=== PATIENT | male | born 1960 | race Caucasian/White ===

== ENCOUNTER 2019-12-13 10:32 | Inpatient (IN) | payer OTHER, SELFPAY ==
[2019-12-13] VITALS (8 sets, daily range): BP systolic 130–168; BP diastolic 68–81; PULSE 66–112; RESP 14–20; TEMP 36.3–37.1; O2SAT 97–100; BMI 27.2
--- NOTE | ~2019-12-13 | CT_ITS ---
EXAMINATION: CT brain wo con EXAM DATE: 12/13/2019 11:20 INDICATION: Temporary change in awareness. Speech impairment. TECHNIQUE: Spiral CT of the head was performed without contrast. Axial, coronal and sagittal images were reviewed. The dose-length product (DLP) for this examination was 605.33 mGy-cm. The exposure w as tailored according to patient size, and iterative reconstruction (ASIR) was used as additional dos e reduction technique. Comparison is made to prior examination from 09/17/2004. FINDINGS: There is no acute intraparenchymal hemorrhage. No evidence of intraparenchymal brain mass lesion. No evidence of acute infarction. Please note that initial head CT has limited sensitivity f or small or acute infarctions. There is punctate old left basal ganglia lacunar infarction. There i s mild periventricular and subcortical hypodensity, nonspecific but probably related to small vessel ischemic disease. There is intracranial carotid arteriosclerosis. There are no extra-axial collec tions. There is no mass effect or midline shift. The orbits are unremarkable. Soft tissue is unrem arkable. The visualized sinuses and mastoid air cells are well aerated. There is sclerotic focus i n the left frontal bone measuring 1.7 cm in diameter, was 1.4 cm in 2004. This is a benign finding, p ossibly Paget's disease. IMPRESSION: 1. Punctate old left basal ganglia lacunar infarction. 2. Mild microangiopathy. 3. Left frontal sclerotic region, calvarial possible Paget's. Reviewed, dictated and finalized at location B. OS EXECUTIVE PRODUCER
--- NOTE | ~2019-12-13 | MR_ITS ---
EXAMINATION: MR brain/brain stem wo con DATE: 12/14/2019 09:16 INDICATION: Expressive aphasia. TECHNIQUE: Magnetic resonance imaging (MRI) of the brain and brainstem was performed without intraven ous contrast. Sequences included sagittal and axial T1-weighted FSE, axial diffusion-weighted FS EPI, axial T2*-weighted GRE, axial T2-weighted FLAIR Propeller, and axial T2-weighted Propeller. Apparent diffusion coefficient (ADC) maps were created. COMPARISON: Head CT 12/13/2019 FINDINGS: There are patchy acute infarcts in posterior left frontal lobe. There is no intracranial he morrhage or abnormal mass lesion. There are scattered areas of nonspecific increased T2-weighted sign al intensity in the cerebral white matter. There is an old lacunar infarct in the left basal ganglia. The ventricles are normal in size. There are likely changes of ocular lens replacement surgeries. Th ere is mucosal thickening in the paranasal sinuses. The mastoid air cells are normal. IMPRESSION: 1. Acute infarcts in posterior left frontal lobe. 2. Old lacunar infarct in the left basal ganglia. 3. Mild nonspecific cerebral white matter disease, which likely represents chronic small vessel ische florentino disease. Reviewed, dictated and finalized at location A. RIALS RESEARCH ENGINEER IMPRESSION: 1. Acute infarcts in posterior left frontal lobe. 2. Old lacunar infarct in the left basal ganglia. 3. Mild nonspecific cerebral white matter disease, which likely represents street engineer ayde small vessel ischemic disease.
--- NOTE | ~2019-12-13 | XR_ITS ---
EXAMINATION: XR chest 1V EXAM DATE: 12/13/2019 11:26 INDICATION: Transient speech impairment, now resolved. TECHNIQUE: Portable AP frontal chest x-ray was obtained. Comparison is made to prior examination from 04/23/2018. FINDINGS: Prominent aortic outflow contour, as previously evaluated on chest CT is being mildly dilat ed. The lungs are clear. There are no pleural effusions. The cardiomediastinal silhouette is within normal limits. There is no pneumothorax suspected. The bones and soft tissues are unremarkable. IMPRESSION: No acute cardiopulmonary findings. Reviewed, dictated and finalized at location B. CTOR OF ACQUISITIONS
--- NOTE | ~2019-12-13 | US_ITS ---
EXAMINATION: US carotid duplex BI DATE: 12/14/2019 09:31 INDICATION: Transient ischemic attack. TECHNIQUE: Grayscale, color Doppler, and pulsed Doppler images of the cervical carotid arteries were obtained. The degree of vessel stenosis is placed in one of the following categories: normal, <50%, 5 0-69%, >=70% but less than near-occlusion, near-occlusion, or total occlusion. Note that percent sten osis relative to normal distal artery lumen diameter is indirectly measured from velocity measurement s as described by Endy, et al. Radiology 2003; [id number]. COMPARISON: None. FINDINGS: RIGHT: The right common carotid artery (CCA) peak systolic velocity (PSV) is 96 cm/s. The right internal car otid artery (ICA) PSV is 84 cm/s. The right ICA end-diastolic velocity (EDV) is 30 cm/s. The right IC A/CCA PSV ratio is 0.9. Grayscale and color Doppler images yield an estimate of <50% diameter reducti on from plaque in the ICA. There is antegrade flow in the right vertebral artery. LEFT: The left CCA PSV is 79 cm/s. The left ICA PSV is 82 cm/s. The left ICA EDV is 25 cm/s. The left ICA/C CA PSV ratio is 1.0. Grayscale and color Doppler images yield an estimate of <50% diameter reduction from plaque in the ICA. There is antegrade flow in the left vertebral artery. IMPRESSION: 1. <50% stenosis in the right internal carotid artery. 2. <50% stenosis in the left internal carotid artery. Reviewed, dictated and finalized at location A. CH CLEANER
--- NOTE | 2019-12-13 11:07 | ECG_ITS ---
Measurements Intervals [place] Rate: 76 P: 24 NH: 159 QRS: -18 QRSD: 106 T: 71 QT: 357 QTc: 404 Interpretive Statements SINUS RHYTHM POSSIBLE LEFT VENTRICULAR HYPERTROPHY CANNOT RULE OUT SEPTAL INFARCT, AGE INDETERMINATE BORDERLINE ST ABNORMALITY- LATERAL LEADS BASELINE ARTIFACT- I, III, AVL, V1-V2 ABNORMAL ECG Electronically Signed On 12-13-2019 11:16:19 NUCLEAR EQUIPMENT OPERATOR by Hernesto Garrett D.O.
--- NOTE | 2019-12-13 11:15 | PC.NURSE ---
unable to draw labs due to pt taken to ct and xy
[2019-12-13 11:37] LABS: Basophils Absolute Auto 0.1 K/mm3 (0.0-0.1); Basophils Percent Auto 0.9 % (0.2-1.2); Eosinophils Absolute Auto 0.3 K/mm3 (0-0.3); Eosinophils Percent Auto 2.8 % (0-4.4); Hematocrit 33.8 % (42.0-52.0); Hemoglobin 11.5 g/dL (14.0-18.0); Immature Granulocyte Absolute 0.02 K/mm3 (0.00-0.031); Immature Granulocyte Percent A 0.2 % (0-0.5); Lymphocytes Absolute Auto 0.93 K/mm3 (0.9-3.2); Lymphocytes Percent Auto 10.4 % (18.3-44.2); Mean Corpuscular Hemoglobin 30.8 pg (26-34); Mean Corpuscular Volume 90.6 fl (80-100); Mean Platelet Volume 9.3 fl (7.4-10.4); Monocytes Absolute Auto 0.6 K/mm3 (0.1-0.6); Monocytes Percent Auto 6.1 % (2.6-8.5); Neutrophils Absolute Auto 7.1 K/mm3 (1.3-6.7); Neutrophils Percent Auto 79.6 % (45.5-73.1); Platelet Count Result 314 k/mm3 (150-375); Red Blood Count 3.73 M/mm3 (4.6-6.20); Red Cell Distribution Width 12.4 % (11.5-14.5)
--- NOTE | 2019-12-13 11:37 | ED.NEUROSD ---
HPI - Neuro Symptoms/Deficit General Chief Complaint: Neuro Symptoms/Deficit Stated Complaint: TROUBLE SPEAKING Time Seen by Provider: 12/13/19 11:18 Source: patient and RN notes reviewed Mode of arrival: ambulatory Limitations: no limitations History of Present Illness HPI Narrative: Pt is a 59 y/o male who presents to the ED with c/o difficulty speaking starting yesterday morning. He notes that he woke up with trouble articulating words. Pt states that his symptoms resolved after roughly 3 hours. He notes that he woke up with the same symptoms again today. Pt states that his speech difficulty is nearly resolved while in the ED bed. He denies any weakness, troubled gait, fever, or chills. Pt notes that he is not currently taking any anticoagulants. Onset (ago): day(s) (1) Location: speech On Anticoagulants: No Associated symptoms: denies other symptoms Related Data Home Medications Medication Instructions Recorded Confirmed hydrochlorothiazide 25 mg tablet 25 mg PO DAILY 09/29/19 12/13/19 losartan 100 mg tablet 100 mg PO DAILY 09/29/19 12/13/19 cholecalciferol (vitamin D3) 125 5,000 unit PO DAILY 10/03/19 12/13/19 mcg (5,000 unit) capsule hydralazine 50 mg tablet 50 mg PO BID tablet 10/03/19 12/13/19 spironolactone 25 mg tablet 25 mg PO DAILY 10/03/19 12/13/19 diltiazem HCl 360 mg PO DAILY 11/01/19 12/13/19 Allergies Allergy/AdvReac Type Severity Reaction Status Date / Time lisinopril Allergy Severe Swelling Verified 12/13/19 11:09 of Lip/Tongue/Throat venom-wasp Allergy Intermediate rash Verified 12/13/19 11:09 PHYLLIS Inhibitors Allergy Mild Unknown Verified 12/13/19 11:09 Review of Systems Review of Systems: All systems reviewed & are unremarkable except as noted in HPI and below Constitutional: Constitutional: Denies chills and Denies fever(s) Respiratory: Respiratory: Denies cough and Denies dyspnea Gastrointestinal: Gastrointestinal: Denies nausea Genitourinary: Genitourinary: Denies no additional male genitourinary complaints Neurologic: Reports Abnormal speech present, Denies abnormal gait, Denies dizziness, Denies syncope, Denies headache(s) and Denies focal weakness [facility] Family History Family History Father Patient's father is Cancer Pancreatic Hypertension Mother Dementia Congestive heart failure Hypertension Sibling Hypertension Social History Social History Social History: Patient is and [facility] with [facility]. Shraddha his is the power of employment law attorney for healthcare. He has 1 daughter. 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 He desires to be a full code. He is a former smoker who quit about 15-20 years ago. Socially drinks. Years smoked: 20 Smoking status: Former smoker Second hand tobacco smoke exposure: No Smoking end date: 11/14/07 Alcohol intake: current Drinks per week: 24 Substance use: current Substance use type: marijuana Last use: 12/10/2019 Gender identity (if verbalized by the patient): Male Spiritual care concerns: No Agree to blood products: Yes Comments PCP is Dr. Fairchild. Exam Const: General: healthy appearing, no acute distress and well developed Nutritional Appearance: well nourished Orientation/consciousness: patient oriented x3 (alert) and Other orientation findings (Alert) Limitations: no limitations HENMT: Head: normocephalic and atraumatic Eyes: General: appearance normal, both eyes and all related structures Neck: Neck: full ROM, no lymphadenopathy and supple Thyroid: thyroid normal Resp: Effort & Inspection: normal respiratory effort Auscultation: clear to auscultation bilaterally, no rales, no rhonchi, no wheezes and other (breath sounds equal) Cardio: Rate: regular rate Rhythm: regular rhythm Heart sounds: Murmur heart sound present (loud
[2019-12-13 11:49] LABS: Blood Urea Nitrogen 54 mg/dL (9-20); Calcium 9.5 mg/dL (8.4-10.2); Carbon Dioxide 16 mmol/L (22-30); Chloride 105 mmol/L (98-107); Estimated CRCL calculation 28 ml/min; Estimated Glomerular Filt Rate 24; Glucose 118 mg/dL (75-110); Potassium 4.7 mmol/L (3.4-5.0); Sodium 134 mmol/L (137-145)
[2019-12-13 12:00] LABS: Troponin I 0.029 ng/mL (0.000-0.034)
[2019-12-13] MEDS: LACTATED RINGERS 1,000 ML 60 ML IV CONT (12:34)
[2019-12-13] MEDS: ASPIRIN 81 MG CHEWABLE TABLET (12:34)
--- NOTE | 2019-12-13 13:42 | ADMGEN ---
This patient, Mahin Duran, was admitted to [facility] Surg Room 315-01. Patient/family oriented to hospital policies and general routines including ID bracelet, bed and alarms, visiting hours, pain management, procedures, bathroom and other care routines, personal items, smoking policy, room service/diet, and visiting hours. Valuables list has been completed. Information on how to activate the Rapid Response Team has been discussed. Patient/Family are encouraged to report perceived risks to care and to ask questions if they do not understand what they are told or what they should do.
--- NOTE | 2019-12-13 17:29 | PM.IMHP ---
H&P: HPI History of Present Illness Chief complaint: TIA Narrative: Mahin Duran is a 59 year old male who stated for the last 2 days he has been getting up in the morning and having difficulty speaking. The patient stated yesterday he his speech got better throughout the day but when he woke up this morning he was still having difficulty talking. He stated that he got dressing went to work and is his boss sent him home. He had no focal weakness. The patient does not recall ever having a CVA in the past. He does not take an aspirin daily. He did not take an aspirin today or yesterday after the symptoms started. The symptoms resolve on their own. He denies having any difficulty swallowing. A speech evaluation was placed. Patient stated that he got somewhat choked up when he was using a straw and it was suggested that he not use a straw while he is admitted here. Patient stated his symptoms resolved after about 3 hours each day. He stated he has a murmur and that his out patient therapist is monitoring his heart valve closely. Last echo was October of 2019. Which shows some mild to moderate aortic stenosis. Patient denies any chest pain or shortness of breath. Patient had a CT of the brain today which was read as old left basal gangliar lacunar infarction. Mild micro angiopathy. Left frontal sclerotic region, calvarial possible Paget. The patient has not had any headache or any bone pain. He has never been diagnosed with Paget's disease nor has anybody in his family. Patient was given an aspirin in the emergency room and neurology has been consulted. Date of service 12/13/2019 Review of Systems Review of Systems: All systems reviewed & are unremarkable except as noted in HPI and below Constitutional: Constitutional: Reports as per HPI and Reports no additional constitutional complaints Eyes: Eyes: Reports as per HPI and Reports no additional eye complaints ENT: Reports system reviewed and no additional complaints, except as documented and Reports Normal hearing present Cardiovascular: Cardiovascular: Reports as per HPI and Reports no additional cardiovascular complaints Comments: History of aortic stenosis Respiratory: Respiratory: Reports no additional respiratory complaints and Reports no additional respiratory complaints Gastrointestinal: Gastrointestinal: Reports as per HPI and Reports no additional gastrointestinal complaints Musculoskeletal: Musculoskeletal: Reports no additional musculoskeletal complaints Integumentary/Breasts: Skin/Breast: Reports system reviewed and no additional complaints, except as docu and Reports as per HPI Neurologic: Reports system reviewed and no additional complaints, except as documented, Reports as per HPI and Reports Normal hearing present Comments: Temporary expressive aphasia Psychiatric: Psychiatric: Reports no additional psychiatric complaints and Reports as per HPI Endocrine: Endocrine: Reports no additional endocrine complaints Hematologic/Lymphatic: Hematologic/Lymphatic: Reports no additional hematologic/lymphatic complaints Allergic/Immunologic: Allergic/Immunologic: Reports no additional allergic/immunologic complaints PMFSH Past Medical History Medical History (Updated 12/13/19 @ 17:54 by Salena Randhawa NP) Anemia Anxiety Cataracts, bilateral Chronic renal disease crf stage 3 Colon cancer screening CVA (cerebral vascular accident) Today old left basal ganglia lacunar infarction. Dysfunction, bladder Straight caths TID Hyperlipidemia Hypertension UTI (urinary tract infection) Surgical History Surgical History (Updated 12/13/19 @ 17:45 by Salena Randhawa NP) History of transurethral resection of prostate Hx of cataract surgery Bilateral Family History Family History Father Patient's father is Cancer Pancreatic Hypertension Mother Dementia Congestive heart failure H
[2019-12-13] MEDS: hydrALAZINE HCL 50 MG TABLET PO (18:49)
[2019-12-14] VITALS: PULSE 72
[2019-12-14 04:00] VITALS: PULSE 66
[2019-12-14 06:00] VITALS: BP 143/75; PULSE 65; RESP 18; TEMP 36.7; O2SAT 99
[2019-12-14 06:08] LABS: Basophils Absolute Auto 0.1 K/mm3 (0.0-0.1); Basophils Percent Auto 0.8 % (0.2-1.2); Eosinophils Absolute Auto 0.6 K/mm3 (0-0.3); Eosinophils Percent Auto 7.6 % (0-4.4); Hematocrit 35.4 % (42.0-52.0); Hemoglobin 12.2 g/dL (14.0-18.0); Immature Granulocyte Absolute 0.02 K/mm3 (0.00-0.031); Immature Granulocyte Percent A 0.3 % (0-0.5); Lymphocytes Absolute Auto 1.17 K/mm3 (0.9-3.2); Lymphocytes Percent Auto 15.4 % (18.3-44.2); Mean Corpuscular HGB Conc 34.5 g/dl (32-36); Mean Corpuscular Volume 90.1 fl (80-100); Mean Platelet Volume 9.7 fl (7.4-10.4); Monocytes Absolute Auto 0.7 K/mm3 (0.1-0.6); Monocytes Percent Auto 9.3 % (2.6-8.5); Neutrophils Absolute Auto 5.1 K/mm3 (1.3-6.7); Neutrophils Percent Auto 66.6 % (45.5-73.1); Platelet Count Result 315 k/mm3 (150-375); Red Blood Count 3.93 M/mm3 (4.6-6.20); Red Cell Distribution Width 12.1 % (11.5-14.5); White Blood Count 7.6 K/mm3 (4.5-10.0)
[2019-12-14 06:12] LABS: Alanine Aminotransferase 14 U/L (4-50); Albumin Level 4.4 g/dL (3.5-5.1); Alkaline Phosphatase 80 U/L (38-126); Aspartate Amino Transferase 22 U/L (17-59); Bilirubin,Total 0.8 mg/dL (0.2-1.3); Blood Urea Nitrogen 48 mg/dL (9-20); Calcium 9.6 mg/dL (8.4-10.2); Carbon Dioxide 16 mmol/L (22-30); Chloride 104 mmol/L (98-107); Estimated CRCL calculation 31 ml/min; Estimated Glomerular Filt Rate 28; Glucose 105 mg/dL (75-110); Magnesium 1.5 mg/dL (1.6-2.3); Potassium 4.3 mmol/L (3.4-5.0); Sodium 133 mmol/L (137-145)
[2019-12-14 08:00] VITALS: PULSE 92
[2019-12-14 08:51] LABS: Free T4 Free Thyroxine Reflex 1.09 ng/dL (0.78-2.19)
[2019-12-14 09:40] LABS: Total Triiodothyronine (T3) 0.92 NG/ML (0.97-1.69)
[2019-12-14] MEDS: MAGNESIUM SULF 1 GM/D5W 100 ML 1 GM/100 ML BAG IVPB (09:43)
[2019-12-14] MEDS: SPIRONOLACTONE 25 MG TABLET PO (09:44)
[2019-12-14] MEDS: LOSARTAN POTASSIUM 100 MG TABLET PO (09:44)
[2019-12-14] MEDS: hydrALAZINE HCL 50 MG TABLET PO (09:44)
[2019-12-14] MEDS: CHOLECALCIFEROL 1,000 UNIT TABLET 5000 UNITS PO (09:44)
[2019-12-14] MEDS: hydroCHLOROthiazide 25 MG TABLET PO (09:44)
[2019-12-14] MEDS: ASPIRIN 81 MG CHEWABLE TABLET PO (10:15)
--- NOTE | 2019-12-14 11:06 | PM.IMPN ---
Progress Note: A&P Assessment and Plan (1) CVA (cerebral vascular accident): Code(s): I63.9 - Cerebral infarction, unspecified Status: Acute Assessment and Plan: Patient is doing okay today; he reports his symptoms have improved, if not resolved today. MRI of brain today showed acute posterior left frontal lobe infarcts. Notified Dr. Berg who recommended CTA of brain and carotids, however, patient has CKD and unable to perform imaging due to GFR. Old lacunar infarction noted. Aspirin started in ER. He had JORGE in 10/2019 and was told he had some narrowing of his aortic valve; no Echo was ordered during this stay. Carotid Doppler <50% stenosis b/l. Dr. Berg consulted and appreciate input Speech therapy has been consulted and appreciate input. He has apparently been instructed not to drink from stray Continue aspirin therapy for now Will await further recommendations from Neurology Monitor (2) Anemia: Code(s): D64.9 - Anemia, unspecified Status: Chronic Assessment and Plan: Likely due to chronic renal failure. Hemoglobin 12.2 which is above his baseline. No evidence of active bleeding Should he stay another night, trend labs tomorrow (3) Chronic renal disease: Code(s): N18.9 - Chronic kidney disease, unspecified Status: Acute Assessment and Plan: Patient straight caths himself 3 times a day. Patient is at his baseline Cr with 2.4 and GFR is 28 today. Follows with a wastewater technician outpatient. Patient stated that his creatinine and GFR been pretty stable. Continue straight cath as needed/TID Monitor BMP tomorrow should he stay (4) Hypertension: Code(s): I10 - Essential (primary) hypertension Status: Chronic Assessment and Plan: BP is 140s sys today; elevated but relatively stable. Continue with his home dose of spironolactone, losartan, hydrochlorothiazide, hydralazine, and diltiazem Monitor (5) Dysfunction, bladder: Code(s): N31.9 - Neuromuscular dysfunction of bladder, unspecified Status: Chronic Assessment and Plan: Patient straight cath 3 times a day. Continue straight cath Subjective Date/time seen: 12/14/19 11:06 Interval history: Patient is s 59 yo M with hyperlipidemia, hypertension, chronic renal disease, and bladder dysfunction (self catheterizes TID) who is here for stroke work up after having symptoms of expressive aphasia earlier in the week. Today, patient states that his symptoms have nearly resolved. He also denies ever having any other associated symptoms like facial droop, slurred speech, arm/leg weakness today and in the days prior to admission. He otherwise has no complaints. We discussed in lenght of the MRI results he had this morning and did not have any questions for me. Denies f/c/ns, headaches, dizziness, lightheadedness, changes in v/h, cp/palpitations, sob/cough, n/v/d/c, abd pain, dysphagia, melena, brbpr, dysuria, hematuria, cloudy urine, calf pain/swelling. Review of Systems Review of Systems: All systems reviewed & are unremarkable except as noted in HPI and below Exam Narrative: Exam Narrative: Patient sitting upright in bed at time of visit. No acute distress Const: General: healthy appearing, comfortable, no acute distress, well developed and alert Orientation/consciousness: patient oriented x3 HENMT: Head: normocephalic and atraumatic Ears: external ears normal General nose exam: Normal nares present Face and sinus: face symmetric Mouth: Yes lip normal and Yes moist mucous membranes Teeth and gingiva: fair dentition Throat: posterior oropharynx normal and uvula midline Eyes: General: appearance normal, both eyes and all related structures Sclera: sclerae normal Pupils: Equal, round and reac
[2019-12-14 12:00] VITALS: PULSE 90
--- NOTE | 2019-12-14 15:46 | PM.DS ---
DS: Diagnosis Admitting Diagnosis Admitting Diagnosis: Aphasia Discharge Diagnosis (1) CVA (cerebral vascular accident): Code(s): I63.9 - Cerebral infarction, unspecified Status: Acute Assessment and Plan: Patient is doing okay today; he reports his symptoms have improved, if not resolved today. MRI of brain today showed acute posterior left frontal lobe infarcts. Notified Dr. Berg who recommended CTA of brain and carotids, however, patient has CKD and unable to perform imaging due to GFR. Old lacunar infarction noted. Aspirin started in ER. He had JORGE in 10/2019 and was told he had mild-moderate stenosis of his aortic valve; no Echo was ordered during this stay. Carotid Doppler <50% stenosis b/l. Dr. Berg consulted and appreciate input. He has okayed patient for discharge from his standpoint. Recommended aspirin and atorvastatin 20 mg daily upon discharge. Follow up with him in 2 months Speech therapy has been consulted and appreciate input. He has apparently been instructed not to drink from straw (2) Anemia: Code(s): D64.9 - Anemia, unspecified Status: Chronic Assessment and Plan: Likely due to chronic renal failure. Hemoglobin 12.2 which is above his baseline. No evidence of active bleeding Follow up with PCP (3) Chronic renal disease: Code(s): N18.9 - Chronic kidney disease, unspecified Status: Acute Assessment and Plan: Patient straight caths himself 3 times a day. Patient is at his baseline Cr with 2.4 and GFR is 28 today. Follows with a support service tech outpatient. Patient stated that his creatinine and GFR been pretty stable. Continue straight cath TID as outpatient Follow up with his support service tech as instructed (4) Hypertension: Code(s): I10 - Essential (primary) hypertension Status: Chronic Assessment and Plan: BP is 140s sys today; elevated but relatively stable. Continue with his home dose of spironolactone, losartan, hydrochlorothiazide, hydralazine, and diltiazem (5) Dysfunction, bladder: Code(s): N31.9 - Neuromuscular dysfunction of bladder, unspecified Status: Chronic Assessment and Plan: Patient straight cath 3 times a day. Continue straight cath as outpatient DS: Summary Hospital Course Reason for hospitalization: Left hemispheric CVA Hospital Course: Patient is a 59 yo M with history of CKD, bladder dysfunction, HTN, and HLD who presented to the ER on 12/13 with complaints of difficulty speaking for the 2 days prior to presentation. His speech gets better throughout the day and then woke up the morning of presentation having difficulty speaking, again, and his boss sent him home from work with instructions to proceed to the ER to be evaluated. Please see H&P for further details. Presenting VS: BP 158/72, HR 89, RR 18, temp 98.1, sat 97% RA Presenting Pertinent labs: H&H 11.5/33.8, BUN 54, Cr 2.70, eGFR 24. CBC, coag, BMP, troponin, TSH otherwise unremarkable. Micro: none Imagin/[address] IMPRESSION: 1. Punctate old left basal ganglia lacunar infarction. 2. Mild microangiopathy. 3. Left frontal sclerotic region, calvarial possible Paget's. 12/13 CXR IMPRESSION: No acute cardiopulmonary findings. 12/14 MRI brain IMPRESSION: 1. Acute infarcts in posterior left frontal lobe. 2. Old lacunar infarct in the left basal ganglia. 3. Mild nonspecific cerebral white matter disease, which likely represents chronic small vessel ischemic disease. 12/14 Carotid Doppler IMPRESSION: 1. <50% stenosis in the right internal carotid artery. 2. <50% stenosis in the left internal carotid artery. ECG: Interpretive Statements SINUS RHYTHM POSSIBLE LEFT VENTRICULAR HYPERTROPHY CANNOT RULE OUT SEPTAL INFARCT, AGE INDETERMINATE BORDER
--- NOTE | 2019-12-14 16:23 | PC.NURSE ---
pt to MRI and US at 0845 return at 0940
--- NOTE | 2019-12-17 06:16 | CONS_ITS ---
DATE OF CONSULTATION: HISTORY OF PRESENT ILLNESS: This 59 years old right-handed male has been admitted to [facility] through the emergency room for the complaint of difficulties in speech over the last 48 hours. Reportedly, he got dressed to go to work, but his boss sent him home. He was not noted to have any focal weakness. He has never had a TIA or stroke in the past. Symptomatology resolved by itself. He had no associated difficulties in swallowing, difficulties in vision, but he did get somewhat choked up when he was using a straw. Symptomatology lasted only for 3 hours. He is known to have a cardiac murmur for which he is being monitored by the reading teacher. Last echo was in October 2019, which documented [id number] aortic stenosis. Initial CT scan of the brain in the emergency room documented left basal ganglia lacunar infarct with mild microangiopathy. PAST MEDICAL HISTORY: The patient has been diagnosed in the past to have anemia, anxiety, bladder dysfunction, hyperlipidemia, and hypertension. PAST SURGICAL HISTORY: He has undergone TUR and bilateral cataract extraction. SOCIAL HISTORY: He is a current alcohol intaker, drinks per week 24 and a former smoker. He has smoked 20. MEDICATIONS: At the time of admission, he was taking hydrochlorothiazide 25 mg daily, losartan 100 mg daily, cholecalciferol 5000 units daily, hydralazine 50 mg twice a day, spironolactone 25 mg daily, diltiazem 360 mg daily. ALLERGIES: HE HAS ALLERGY TO LISINOPRIL, AND PHYLLIS INHIBITOR. PHYSICAL EXAMINATION: VITAL SIGNS: Evaluation up until now revealed him to be afebrile with blood pressure 168/72. HEENT: Head normocephalic with no cranial bruit. Ears, nose, throat examination normal. NECK: Supple with no cervical bruit. No thyromegaly. No lymphadenopathy. HEART: Regular with no murmur. LUNGS: Clear to auscultation. No rhonchi, no crepitation. ABDOMEN: Soft with no organomegaly. Normal bowel sounds. NEUROLOGICAL: He is awake, alert, oriented x3. Speech not dysphasic, no dysarthric, not dysphonic. Pupils round, regular. Neal of vision full. Extraocular movements full. Face symmetrical. Tongue midline. Motor examination revealed him to have normal motor exam with no drift against gravity. Tone is normal and symmetrical. Plantars downgoing. There is no evidence of gross sensory or cerebellar deficits. LABORATORY DATA: Investigation documented normal CBC with hemoglobin 11.5, WBC 9000. Basic metabolic panel normal with sodium 134, potassium 4.7, chloride 105, CO2 is 16, BUN 54, creatinine 2.7, glucose 118, calcium 9.5, troponin 0.029. IMAGING: CT scan of the head negative except the old left basal ganglia lacunar infarct and microangiopathy, in addition left frontal sclerotic lesion, raising the possibility of Paget disease. MRI of the brain has documented acute infarct, posterior left frontal lobe with old lacunar infarct in the left basal ganglia and mild nonspecific white matter disease representing chronic small-vessel ischemic changes. Chest x-ray is negative. Doppler study of the carotid is less than 50% stenosis bilaterally. IMPRESSION: Left hemispheric stroke, most likely on the basis of embolic phenomenon. Doppler study is negative. I was considering the possible CT angiogram but he cannot have it because of the contrast, so we will start him on the medication that is aspirin 81 mg daily. In the meantime, control his blood pressure. If necessary, we can obtain the cardiac studies farther. If any further question arises, please do not hesitate to contact me. NIELS LOPEZ M.D. QA LEAD QA LEAD Samira Castillo
== END 2019-12-14 16:40 | disposition home or self-care (01) | DRG 66 ==
LOC: ANHED 12:01 → ANH3MEDSUR 12:30
PROVIDERS: Nurse Practitioner; Admitting Provider Family Medicine; Emergency Provider Emergency Medicine; PCP Internal Medicine; Visit Provider Internal Medicine
DX: I63.9 Cerebral infarction, unspecified (principal); R47.01 Aphasia; I12.9 Hypertensive chronic kidney disease with stage 1 through stage 4 chronic kidney disease, or unspecified chronic kidney disease; N18.3 Chronic kidney disease, stage 3 (moderate); D63.1 Anemia in chronic kidney disease; N31.9 Neuromuscular dysfunction of bladder, unspecified; E78.5 Hyperlipidemia, unspecified; Z87.891 Personal history of nicotine dependence; Z23 Encounter for immunization; Z98.42 Cataract extraction status, left eye; Z98.41 Cataract extraction status, right eye
CPT/HCPCS: 36415; 70450; 70551; 71045; 80048; 80053; 83735; 84439; 84443; 84480; 84484; 85025; 85610; 85730; 90471; 90686; 92610; 93005; 93880; 96360; 99285; A9270; G0008; J3475; J7120

== ENCOUNTER 2020-01-09 00:38 | Day surgery (SDC) | payer OTHER, SELFPAY ==
[2020-01-09] VITALS (8 sets, daily range): BP systolic 111–151; BP diastolic 65–83; PULSE 65–83; RESP 14–20; TEMP 36.8; O2SAT 97–100
--- NOTE | 2020-01-09 09:49 | WPDMODSED ---
Moderate Sedation Note-Pt Data Patient Data Diagnosis: Aortic stenosis, stroke Present Complaint: Aortic stenosis, stroke Procedure to be performed/Plan: Multiplanar transesophageal echocardiography with color flow and pulse wave Doppler Agitated saline study Moderate sedation Allergies Allergy/AdvReac Type Severity Reaction Status Date / Time lisinopril Allergy Severe Swelling Verified 12/13/19 11:09 of Lip/Tongue/Throat venom-wasp Allergy Intermediate rash Verified 12/13/19 11:09 PHYLLIS Inhibitors Allergy Mild Unknown Verified 12/13/19 11:09 Home Medications Medication Instructions Recorded Confirmed Type hydrochlorothiazide 25 mg tablet 25 mg PO DAILY 09/29/19 01/09/20 History losartan 100 mg tablet 100 mg PO DAILY 09/29/19 01/09/20 History cholecalciferol (vitamin D3) 125 5,000 unit PO DAILY 10/03/19 01/09/20 History mcg (5,000 unit) capsule hydralazine 50 mg tablet 50 mg PO BID tablet 10/03/19 01/09/20 History spironolactone 25 mg tablet 25 mg PO DAILY 10/03/19 01/09/20 History diltiazem HCl 360 mg PO DAILY 11/01/19 01/09/20 History aspirin [Children's Aspirin] 81 mg PO DAILY@0800 #60 tablet 12/14/19 01/09/20 Rx atorvastatin 20 mg PO HS #60 tablet 12/14/19 01/09/20 Rx Current Medications: Active Medications Sodium Chloride (Normal Saline Iv) 500 mls @ 500 mls/hr IV CONT .Q1H ONE Stop: 01/09/20 10:59 Sedation/Anesthesia: No previous sedation/anesthesia problems (including family history). [facility] Past Medical History Medical History Anemia Anxiety Cataracts, bilateral Chronic renal disease crf stage 3 Colon cancer screening CVA (cerebral vascular accident) Old left basal ganglia lacunar infarction. 12/14/19 - acute posterior left frontal lobe infarcts Dysfunction, bladder Straight caths TID Hyperlipidemia Hypertension UTI (urinary tract infection) Surgical History Surgical History History of transurethral resection of prostate Hx of cataract surgery Bilateral Family History Family History Father Patient's father is Cancer Pancreatic Hypertension Mother Dementia Congestive heart failure Hypertension Sibling Hypertension Social History Social History Social History: Patient is and lives with his in consult. [place] his is the power of finance attorney for healthcare. He has 1 daughter. 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 He desires to be a full code. He is a former smoker who quit about 15-20 years ago. Socially drinks. Years smoked: 20 Smoking status: Former smoker Second hand tobacco smoke exposure: No Smoking end date: 11/14/07 Alcohol intake: current Drinks per week: 24 Substance use: current Substance use type: marijuana Last use: 12/10/2019 Gender identity (if verbalized by the patient): Male Spiritual care concerns: No Agree to blood products: Yes Mod Sed Physical Exam Physical Exam Pre Procedural Exam: Normal: Appearance, Eyes, Ears, Nose, Neck, Throat, Airway, Lungs, Heart Size, Heart Rate, Heart Rhythm, Neuro Exam, Extremities and Skin Hours since solid foods: 12 Hours since liquid intake: 12 Internal Medicine - PN: Obj Da Vital Signs Vital Signs: Vital Signs - 24 hr 01/09/20 09:27 Temperature 36.8 C Pulse Rate 82 Respiratory Rate 14 Blood Pressure 151/83 H Pulse Oximetry 98 Meds/Results Medications: Active Medications Generic Name Dose Route Start Last Admin Trade Name Freq PRN Reason Stop Dose Admin Sodium Chloride 500 mls @ 500 mls/hr 01/09/20 10:00 Normal Saline Iv IV CONT 01/09/20 10:59 .Q1H ONE ASA Classification/Sedation ASA Classification/Sedation ASA Class: II Emergent: No Risks: Risks, benefits and alte
--- NOTE | 2020-01-09 10:07 | SUR.OPER ---
1001 sedation started 1008 probe inserted
--- NOTE | 2020-01-09 10:27 | SUR.OPER ---
1015 pt awake but drowsy
--- NOTE | 2020-01-09 10:36 | P.PCNTEE_ITS ---
JORGE TransEsophageal Echocardiogram Date of procedure: 01/09/20 Procedure Type: 1. Multiplanar transesophageal echocardiography with pulsed wave and color flow Doppler 2. Agitated saline study 3. Moderate sedation Diagnosis: Aortic stenosis, stroke Indications: Aortic stenosis, stroke Image Quality: Good Findings: After discussing the risks, benefits and alternatives of the procedure the patient agreeable via verbal and written informed consent. Patient was established with continuous front desk monitor, pulse oxygenation and serial blood pressure assessments. After time-out was taken moderate sedation was initiated. Sedation used: A total of 5 mg of Versed and 100 mcg of fentanyl given in divided dosages as well as 10 cc of viscous lidocaine gargle swallow and 1 Hurricaine spray Medications were administered and patient was monitored by Nikky Rosenberg RN Start time 10:01 a.m. Stop time 10:14 a.m. Complications: None Blood loss: None Findings: Normal left ventricular size and function ejection fraction 65-70%. Normal right ventricular size and function. Mild left atrial enlargement. Normal right atrial size. Atrial septum is intact. Negative agitated saline study. Left atrial appendage is normal with velocities goal of greater than 50 centimeters/second. There is no mass or thrombus. The aortic root is normal in size with mild plaquing of the aortic arch. Aortic root is measured 3.5 cm. There is no pericardial effusion. The mitral valve is normal with mild mitral regurgitation. The aortic valve is heavily calcified. Planimetered valve area is 1.9 centimeters squared. It is trileaflet but there is fusion of the commissures. Some calcified hypermobility is noted involving the left coronary cusp. There is moderate aortic insufficiency. Tricuspid valve is normal without significant tricuspid regurgitation. Pulmonic valve normal. Conclusions: 1. Normal left ventricular size and function 2. Mild aortic stenosis with trileaflet aortic valve but it is heavily calcified and abnormal in appearance as detailed above 3. Moderate aortic insufficiency 4. mild left atrial enlargement 5. Intact atrial septum with normal agitated saline study. Very mild atherosclerosis involving the aortic arch 6. Moderate sedation
--- NOTE | 2020-01-09 11:44 | SUR.PHASEII ---
detailed written and verbal discharge instructions reviewed w patient. pt verbalizes understanding. iv dc'd. pt taken out in wheelchair.
== END 2020-01-09 11:47 | disposition home or self-care (01) ==
PROVIDERS: Internal Medicine Cardiovascular Disease; PCP Internal Medicine; Visit Provider Internal Medicine Cardiovascular Disease
PROC: (CPT 93312; principal; 2020-01-09 10:00)
DX: I35.0 Nonrheumatic aortic (valve) stenosis (principal); I35.1 Nonrheumatic aortic (valve) insufficiency; I25.10 Atherosclerotic heart disease of native coronary artery without angina pectoris; I12.9 Hypertensive chronic kidney disease with stage 1 through stage 4 chronic kidney disease, or unspecified chronic kidney disease; N18.4 Chronic kidney disease, stage 4 (severe); D64.9 Anemia, unspecified; Z86.73 Personal history of transient ischemic attack (TIA), and cerebral infarction without residual deficits; Z87.891 Personal history of nicotine dependence; Z79.82 Long term (current) use of aspirin
CPT/HCPCS: 93312; 93320; 93325; J2250; J3010; J7040

== ENCOUNTER 2020-09-02 12:31 | Outpatient (NON) | payer OTHER, SELFPAY ==
[2020-09-02 22:15] LABS: SARS-CoV-2 RNA PCR Positive
== END 2020-09-02 12:32 ==
PROVIDERS: PCP Internal Medicine; Visit Provider Internal Medicine
DX: U07.1 COVID-19 (principal)
CPT/HCPCS: 87635; C9803; U0003

== ENCOUNTER 2024-08-30 16:15 | Outpatient (RCR) | payer OTHER, SELFPAY ==
[2024-08-17 11:45] VITALS: PULSE 107
== END 2024-09-13 15:33 | disposition home or self-care (01) ==
LOC: ANHCPREHAB 16:15
PROVIDERS: PCP Internal Medicine; Visit Provider Specialist
DX: Z95.2 Presence of prosthetic heart valve (principal); Z95.1 Presence of aortocoronary bypass graft
CPT/HCPCS: 93798

== ENCOUNTER 2025-06-24 14:03 | Outpatient (CLI) | payer OTHER, SELFPAY ==
--- OUTSIDE RECORDS SUMMARY | 2025-06-24 14:20 | XMS_ITS | Clinical Summary ---
Author Organization [facility] [place] [address] Address [address] [place] [address] Care Team Providers Care Delivery Driver/Customer Service Name Role Phone oCleman Gallegos MD Unavailable [phone] David Ellis MD Unavailable Nixon Stone MD Unavailable [phone] Charlotte Noland MD Unavailable [phone] Catalino Smith DO Primary Care Provider [phone] Allergies Active Allergy Reactions Criticality Noted Date Comments Irbesartan-Hydrochlorothiazi d e Hives Medium 05/09/2020 Lisinopril Swelling,Swollen tongue High Rosuvastatin Swelling Medium 04/02/2025 Sulfa (Sulfonamide Antibiotics) Unknown 05/09/2020 Medications cholecalciferol (VITAMIN D-3) 5,000 unit capsule Take 1 capsule (5,000 Units total) by mouth daily Active sodium bicarbonate 650 mg tablet Take 1 tablet (650 mg total) by mouth daily Active hydrALAZINE (APRESOLINE) 100 mg tabletIndication s:hypertension Take 1 tablet (100 mg total) by mouth 3 (three) times a day 90 tablet 1 4 07/02/20 25 Active Additional Information Patient not taking.Reported on 02/20/2025 aspirin 325 mg tablet Take 1 tablet (325 mg total) by mouth daily 4 07/03/20 25 Active amLODIPine (NORVASC) 10 mg tablet Take 1 tablet (10 mg total) by mouth daily 30 tablet 1 4 07/03/20 25 Active metoprolol tartrate (LOPRESSOR) 50 mg immediate release tablet Take 1 tablet (50 mg total) by mouth 2 (two) times a day 60 tablet 1 4 07/02/20 25 Active acetaminophen 500 mg capsuleIndicatio ns:Pain Take 2 capsules (1,000 mg total) by mouth every 6 (six) hours as needed for pain 4 Active furosemide (LASIX) 40 mg tablet Take 1 tablet (40 mg total) by mouth daily Take Bid x 2 days then decrease to daily 30 tablet 1 4 Active potassium chloride ER (KLOR-CON) 20 mEq CR tablet Take 1 tablet (20 mEq total) by mouth daily Take BID x 2 days then decrease to daily 30 tablet 1 4 Active losartan (COZAAR) 100 mg tablet Take 1 tablet (100 mg total) by mouth daily 5 Active atorvastatin (LIPITOR) 20 mg tablet Take 1 tablet (20 mg total) by mouth daily 30 tablet 11 5 04/02/20 26 Active Active Problems Problem Noted Date Diagnosed Date Follow-up visit for aortic v alve replacement with bioprosthetic valve 08/01/2024 Hx of CABG 08/01/2024 Pleural effusion, right 07/13/2024 Aneurysm of ascending aorta without rupture 07/2024 Coronary artery disease invo lving [place] coronary artery of [place] heart 06/22/2024 Former smoker 12/21/2019 Anemia 12/21/2019 Essential hypertension 12/21/2019 CKD (chronic kidney disease) stage 4, GFR 15-29 ml/min 12/21/2019 Nonrheumatic aortic valve stenosis 12/21/2019 Cerebrovascular accident (CVA) 12/21/2019 Hay fever 11/24/2012 Angioedema 11/22/2012 Urticaria, unspecified 11/22/2012 Encounters Date Type Department Care Team Description 04/02/2025 Telephone [facility] Cardiology [address] [place] [address] Nixon Stone MD from Last 3 Months Surgical History Surgery Date Site/Laterality Comments CATARACT EXTRACTION TURP / TRANSURETHRAL INCISIO N / DRAINAGE PROSTATE THORACENTESIS W IMAGING RIGHT 07/12/2024 Right CORONARY ARTERY BYPASS GRAFT 06/27/2024 CABG x 1, ERAZO to LAD ASCENDING AORTIC ANEURYSM RE PAIR W/ TISSUE AORTIC VALVE REPLACEMENT 06/27/2024 27 mm Inspiris Tissue Valve Medical History Medical History Date Comments Hypertension Heart murmur Stroke (HCC) Cataracts, bilateral Renal failure Anemia Family History Medical History Relation Name Comments Arrhythmia Brother Cancer Father Vinh Valvular heart disease Mother Arrhythmia Sister Relation Name Status Comments Brother Father Vinh (Age 65) Mother (Age 83) Sister Social History Tobacco Use Types Packs/Day Years Used Date Smoking Tobacco: Former Cigarettes 1 20 0 12/21/1984 - 12/21/2004 Smokeless Tobacco: Never Tobacco Cessation:Counseling Given: Not Answered Alcohol Use Standard Drinks/Week Comments Yes 12 (1 standard drink = 0.6 oz pu re alcohol) [facility] Utilities Answer Date Recorded In the past 12 months has th e electric, gas, oil, or water company threatened to shut off services in your home? No 06/29/2024 Social Connection and Isolation Panel Answer Date Recorded In a typical week, how many times do you talk on the phone with family, friends, or neighbors? More than three times a week 06/29/2024 How often do you get togethe r with friends or relatives? More than three times a week 06/29/2024 How often do you attend chur ch or muslim services? 1 to 4 times per year 06/29/2024 Do you belong to any clubs o r organizations such as druze groups, unions, fraternal or athletic groups, or school groups? Yes 06/29/2024 How often do you attend meet ings of the clubs or organizations you belong to? 1 to 4 times per year 06/29/2024 Are you , , di vorced, , never , or living with a partner? 06/29/2024 AUDIT-C Answer Date Recorded Q1: How often do you have a drink containing alc ohol? 2-3 times a week 06/27/2024 Q2: How many drinks containi ng alcohol do you have on a typical day when you are drinking? 3 or 4 06/27/2024 Q3: How often do you have si x or more drinks on one occasion? Weekly 06/27/2024 Overall Financial Resource Strain (CARDIA) Answe r Date Recorded How hard is it for you to pa y for the very basics like food, housing, medical care, and heating? Not very hard 06/29/2024 Hunger Vital Sign Answer Date Recorded Within the past 12 months, y ou worried that your food would run out before you got the money to buy more. Never true 06/29/20 24 Within the past 12 months, t he food you bought just didn't last and you didn't have money to get more. Never true 06/29/2024 PRAPARE - Transportation Answer Date Re corded In the past 12 months, has l ack of transportation kept you from medical appointments or from getting medications? No 06/14 In the past 12 months, has l ack of transportation kept you from meetings, work, or from getting things needed for daily living? No 06/29/2024 Housing Stability Vital Sign Answer Monroe e Recorded In the last 12 months, was t here a time when you were not able to pay the mortgage or rent on time? No 06/29/2024 In the past 12 months, how m any times have you moved where you were living? 1 06/29/2024 At any time in the past [address] [facility], were you homeless or living in a long-term (including now)? No 06/29/2024 Personal Safety Answer Date Recorded Have you ever been in or are you currently in a harmful physical or emotional relationship or is someone making you feel afraid or unsafe? Denies 07/12/2024 Sex and Gender Information Value Date Recorded Sex Assigned at Not on file Legal Sex Male 9:22 AM REFERRAL COORDINATOR Gender Identity Not on file Sexual Orientation Not on file Obstetrics History Last Filed Vital Signs Vital Sign Reading Time Taken Comments Blood Pressure 180/90 02/20/2025 8:01 AM CDT Pulse 73 02/20/2025 8:01 AM CDT Temperature 36.4 C (97.5 F) 07/12/2024 3:21 PM CDT Respiratory Rate 18 08/02/2024 10:42 AM CDT Oxygen Saturation 99% 02/20/2025 8:01 AM CDT Inhaled Oxygen Concentration - - Weight 82.6 kg (182 lb) 02/20/2025 8:01 AM CDT Height 177.8 cm (5' 10) 02/20/2025 8:01 AM CDT Body Mass Index 26.11 02/20/2025 8:01 AM CDT Plan of Treatment Health Maintenance Due Date Last Done Comments Colon Cancer Screening-Colonoscopy 1960 Depression Screening 1960 Hepatitis C Screening 1960 Prostate Cancer Screening-PSA 1960 DTaP/Tdap/Td Vaccine (1 - Tdap) 1971 Hepatitis B Screening 1978 Pneumococcal vaccine 65+ (1 of 2 - PCV) 1979 Zoster Vaccine (1 of 2) 2010 Abdominal Aortic Aneurysm (A AA) Screen 2025 Well Visit 65+ 2025 Fall Risk Assessment 07/12/2025 07/12/2024 Influenza Vaccine (#1) 2025 0, 08/25/2018, 08/24/2018, Additional history exists Medical Devices Implanted Type Area Quality Associate Device Identifier Shelf Expiration Date Model / Serial / Lot Terumo Cardio Vascular Gelweave 30mm 30cm Suture Retention Unique Hydrolyzable Abdomen [id number] - [id number] - [id number] Implanted:Qty: 1 on 06/27/2024 by Charlotte Noland MD at [facility] Graft N/A: Chest Terumo Cardio Vascular 10/13/2026 [id number] / [id number] / [id number] [employer] Inspiris Resilia Leaflet Sewing Ring 27mm Valve Aortic Bovine [id number] - [id number] - [id number] Implanted:Qty: 1 on 06/27/2024 by Charlotte Noland MD at [facility] Prosthetic Valve N/A: Chest [employer] 02/19/2028 [id number] / [id number] / [place] [address] [facility] Address: [place] [address] [facility] Address: [address] [facility]O Address: [place] [address] [facility]PPO Address: [facility] [address] [place] [address] Advance Directives For more information, please contact: [phone] * Full Code (Latest Code Status on File) Date Activated Date Inactivated Comments 06/27/2024 1:21 PM 07/02/2024 3:22 PM Care Teams Delivery Driver/Customer Service Relationship Specialty Start Date End Date Catalino Smith DO [address] [place] [address] PCP - General Internal Medicine 06/27/24 Coleman Gallegos MD Referring Physician Nephrology 06/06/24 David Ellis MD [address] [place], [place] [id number] Consulting Physician Cardiology 06/06/24 Nixon Stone MD [address] [place] [address] Referring Physician Cardiology 06/06/24 Charlotte Noland MD [address] [place] [address] Consulting Physician Cardiothoracic Surgery 06/06/24
--- OUTSIDE RECORDS SUMMARY | 2025-06-24 14:20 | XMS_ITS | Clinical Summary ---
Author Organization [facility] Address [address] [place] [id number] Phone Care Team Providers Care Aircraft Machinist Helper Name Role Phone Ryan Fairchild DO Primary Care Provider Allergies Active Allergy Reactions Criticality Noted Date Comments Irbesartan-Hydrochlorothiazi de Hives Medium 05/09/2020 Lisinopril Swelling High Other reaction(s): Swollen tongue Reaction: Swelling, Tongue Swelling, Other reaction(s): Swollen tongue Reaction: Swelling, Tongue Swelling, Other reaction(s): Swollen tongue Reaction: Swelling, Tongue Swelling, Sulfa Antibiotics Medications aspirin 81 MG chewable tablet 12/14/2019 Act lj Cholecalciferol (VITAMIN D3) 125 MCG (5000 UT) capsule Take by mouth every other day Active atorvastatin (LIPITOR) 20 MG tablet 07/19/2020 Active losartan (COZAAR) 100 MG tablet 07/19/2020 Active hydroCHLOROthia zide (HYDRODIURIL) 25 MG tablet Take 1 tablet (25 mg total) by mouth 1 (one) time each day 90 tablet 3 01/27/2022 Active dilTIAZem (Tiadylt ER) 360 MG 24 hr capsule Take 1 capsule (360 mg total) by mouth 1 (one) time each day 30 capsule 11 01/27/2022 Active hydrALAZINE (APRESOLINE) 50 MG tablet Take 50 mg by mouth 3 (three) times a day Active Active Problems Problem Noted Date Diagnosed Date Vitamin D deficiency 01/28/2021 Stage 3b chronic kidney disease 02/24/2019 Acute kidney failure 05/24/2018 Essential (primary) hypertension 05/24/2018 Hyperkalemia 05/24/2018 Urinary tract infection 05/24/2018 Retention of urine 05/24/2018 Angioedema 11/22/2012 Immunizations Immunization Administration Dates Next Due Influenza TIV (IM) 08/13/2020,08/25/2018 Moderna Sars-cov-2 Vaccination 01/03/2020 Family History Medical History Relation Comments Kidney stone Sibling Kidney disease Neg Hx Relation Status Comments Sibling Social History Tobacco Use Types Packs/Day Years Used Date Smoking Tobacco: Former Smokeless Tobacco: Never Alcohol Use Standard Drinks/Week Comments No 0 (1 standard drink = 0.6 oz pur e alcohol) AUDIT-C Answer Date Recorded Frequency of Alcohol Consumption Never 02/28/2019 Average Number of Drinks Not on file 019 Frequency of Binge Drinking Not on file 02/12 Sex and Gender Information Value Date Recorded Sex Assigned at Not on file Legal Sex Male 7:49 AM MST Gender Identity Not on file Sexual Orientation Not on file Last Filed Vital Signs Vital Sign Reading Time Taken Comments Blood Pressure 134/60 08/04/2022 3:33 PM CDT Pulse 60 08/04/2022 3:33 PM CDT Temperature 37.6 C (99.6 F) 08/04/2022 3:33 PM CDT Respiratory Rate - - Oxygen Saturation - - Inhaled Oxygen Concentration - - Weight 78 kg (172 lb) 08/04/2022 3:33 PM CDT Height 177.8 cm (5' 10) 08/04/2022 3:33 PM CDT Body Mass Index 24.68 08/04/2022 3:33 PM CDT Plan of Treatment Health Maintenance Due Date Last Done Comments Pneumococcal PPSV23/PCV13 65 + Years / Low and Medium Risk (1 of 2 - PCV) 2010 COVID-19 Vaccine (2 - season) 2024 Influenza Vaccine (#1) 2025 08/13/2020, [address] [facility] Care Teams Aircraft Machinist Helper Relationship Specialty Start Date End Date Ryan Fairchild DO [address] [phone] PCP - General Internal Medicine 02/28/19
--- OUTSIDE RECORDS SUMMARY | 2025-06-24 14:20 | XMS_ITS | Encounter Summary ---
Author Organization [facility] Healthcare Address [address] [place] [address] Care Team Providers Care Bellman Driver Name Role Phone Coleman Gallegos MD Unavailable David Ellis MD Unavailable Nixon Stone MD Unavailable [phone] Charlotte Noland MD Unavailable [phone] Catalino Smith DO Primary Care Provider [phone] Encounter Details Date Type Department Care Team (Late st Contact Info) Description 12/21/2024 Orders Only [facility] Health Information Management [address] [place] [id number] Scanning, Provider Social History Tobacco Use Types Packs/Day Years Used Date Smoking Tobacco: Former Cigarettes 1 20 0 12/21/1984 - 12/21/2004 Smokeless Tobacco: Never Alcohol Use Standard Drinks/Week Comments Yes 12 (1 standard drink = 0.6 oz pu re alcohol) [facility] Utilities Answer Date Recorded In the past 12 months has [employer], gas, oil, or water [employer] threatened to shut off services in your [...] week 06/29/2024 How often do you attend [facility] or anabaptist services? 1 to 4 times per year 06/29/2024 Do you belong to any clubs o r organizations such as synagogue groups, unions, fraternal or athletic groups, or [...] any time in the past 12 m [facility], were you homeless or living in a [place] health care facility (including now)? No 06/29/2024 Personal Safety Answer Date Recorded Have you ever been in or are you currently in a harmful physical or emotional relationship or is someone making you feel afraid or unsafe? 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 Gender Identity Not on file Sexual Orientation Not on file documented as of this encounter Plan of Treatment Not on file documented as of this encounter Procedures Procedure Name Priority Date/Time Associated Diagnosis Comments SCAN - LABS 12/21/2024 documented in this encounter Results * SCAN - LABS (12/21/2024) us Provider Scanning Final Result documented in this encounter Visit Diagnoses Not on filedocumented in this encounter Care Teams Bellman Driver Relationship Specialty Start Date End Date Catalino Smith DO [address] [place] [address] PCP - General Internal Medicine 06/27/24 Coleman Gallegos MD Referring Physician Nephrology 06/06/24 David Ellis MD [address] [place], [place] [id number] Consulting Physician Cardiology 06/06/24 Nixon Stone MD [address] [place] [address] Referring Physician Cardiology 06/06/24 Charlotte Noland MD [address] [place], [place] [id number] Consulting Physician Cardiothoracic Surgery 06/06/24 documented as of this encounter
--- OUTSIDE RECORDS SUMMARY | 2025-06-24 14:20 | XMS_ITS | Clinical Summary ---
Author Organization [facility] Chrissy Solomon Address [address] [place] [address] Care Team Providers Care Sales Host Name Role Phone Unavailable Primary Care Provider Unavailabl e Allergies Active Allergy Reactions Criticality Noted Date Comments Irbesartan-Hydrochlorothiaz joan Hives High 05/09/2020 Lisinopril Swelling High 06/24/2025 Other reaction(s): Swollen tongue Reaction: Swelling, Tongue Swelling, Other reaction(s): Swollen tongue Reaction: Swelling, Tongue Swelling, Other reaction(s): Swollen tongue Reaction: Swelling, Tongue Swelling, Sulfa (Sulfonamide Antibiotics) Swelling Low 06/24/2025 Medications amLODIPine (NORVASC) 2.5 mg tablet Take 1 Tablet by mouth daily. 05/16/2025 Active atorvastatin (LIPITOR) 20 mg tablet Take 1 Tablet by mouth daily. 06/14/2025 Active cholecalciferol, Vitamin D3, 125 mcg (5,000 unit) Capsule Take by mouth. Active furosemide (LASIX) 40 mg tablet Take 40 mg by mouth daily in the morning. 05/09/2025 Active hydrALAZINE (APRESOLINE) 50 mg tablet Take 50 mg by mouth 3 times daily. Active metoprolol succinate (TOPROL XL) 50 mg Extended Release 24 hour tablet Take 1 Tablet by mouth daily. 05/29/2025 Active Active Problems No known active problems Encounters Date Type Department Care Team Description 06/24/2025 1:30 PM CDT Office Visit [facility] Oncology and Hematology - [place] [address] [place] [address] Paras Matthew MD Chronic anemia (Primary Dx) from Last 3 Months Social History Tobacco Use Types Packs/Day Years Used Date Smoking Tobacco: Never Assessed Sex and Gender Information Value Date Recorded Sex Assigned at Not on file Legal Sex Male 9:46 AM CDT Gender Identity Not on file Sexual Orientation Not on file Last Filed Vital Signs Vital Sign Reading Time Taken Comments Blood Pressure 197/104 06/24/2025 1:32 PM CDT Pulse 68 06/24/2025 1:32 PM CDT Temperature 36.6 C (97.8 F) 06/24/2025 1:32 PM CDT Respiratory Rate - - Oxygen Saturation 99% 06/24/2025 1:32 PM CDT Inhaled Oxygen Concentration - - Weight 79.8 kg (176 lb) 06/24/2025 1:32 PM CDT Height 175.3 cm (5' 9) 06/24/2025 1:32 PM CDT Body Mass Index 25.99 06/24/2025 1:32 PM CDT Plan of Treatment Upcoming Encounters Date Type Department Care Team (Late st Contact Info) Description 07/08/2025 4:30 PM CDT Telephone Check Up [facility] Oncology and Hematology - [place] [address] [place] [address] [facility] [address] [place] [address] Paras Matthew MD [address] [facility] [address] [place] [address] Health Maintenance Due Date Last Done Comments DTAP/TDAP/TD VACCINES (1 - Tdap) 1979 COLORECTAL SCREENING 2005 Colorectal Cancer Screening 2005 FIT-DNA Q 3 years 2005 FIT/FOBT Q 1 year 2005 Flex Sig/CT Colonography Q 5 years 2005 PNEUMOCOCCAL VACCINE 50+ YEA RS (1 of 1 - PCV) 2010 ZOSTER VACCINE (1 of 2) 2010 Preventative Visit- Commercial 11/14/2024 INFLUENZA VACCINE (#1) 2025 08/13/2020, 2017 RSV VACCINE (60+ or ) (1 - 1-dose 75+ series) 2035 Insurance
--- OUTSIDE RECORDS SUMMARY | 2025-06-24 14:20 | XMS_ITS | Encounter Summary ---
Author Organization [facility] [employer] Margie [facility] Address [address] [place] [address] Care Team Providers Care Manager Spring Name Role Phone Unavailable Primary Care Provider Unavailabl e Reason for Visit * Reason Comments Establish Care Encounter Details Date Type Department Care Team (Late st Contact Info) Description 06/24/2025 1:30 PM CDT Office Visit [facility] Oncology and Hematology - [place] [address] [facility] [address] [place] [address] Paras Matthew MD [address] [facility] [address] [place] [address] Chronic anemia (Primary Dx) Social History Tobacco Use Types Packs/Day Years Used Date Smoking Tobacco: Never Assessed Sex and Gender Information Value Date Recorded Sex Assigned at Not on file Legal Sex Male 9:46 AM CDT Gender Identity Not on file Sexual Orientation Not on file documented as of this encounter Last Filed Vital Signs Vital Sign Reading [...] Mass Index 25.99 06/24/2025 1:32 PM CDT documented in this encounter Progress Notes * Paras Matthew MD - 06/24/2025 1:29 PM CDT Hematology-oncology consult Note Requesting Physician Coleman Gallegos MD Primary Care Physician No primary care provider on file. Problem list There is no problem list on file for this patient. Previous TREATMENT ? Measurable Disease ? Reason for Visit Mahin Duran is a 65 y.o. male who was referred for consultation for chronic anemia. History of present illness This is a 65-year-old pleasant male with history of chronic kidney disease diagnosed 6 years ago along with history of hypertension, coronary artery disease status post coronary artery bypass grafting x 1 and aortic valve replacement on June 27, 2024. He denies any bleeding including melena hematochezia. He denies any excessive tiredness and fatigue. He has never received blood transfusion and not taking any iron supplements. He denies any diarrhea and constipation. According to patient his last colonoscopy was 5 years ago and came back normal. He denies being a vegetarian. He denies having previous stomach surgeries. His labs from May 24, 2025 showed hemoglobin of 7.5 with creatinine of 3.7 and GFR of 17%. Denies any other new complaints. Past Medical History No past medical history on file. Chronic kidney disease Hypertension Coronary artery disease status post coronary artery bypass grafting Hyperlipidemia Surgical History No past surgical history on file. Coronary artery bypass grafting in June 2024 Aortic valve replacement Aneurysm repair Medications Current Outpatient Medications Medication Sig Dispense Refill amLODIPine (NORVASC) 2.5 mg tablet Take 1 Tablet by mouth daily. atorvastatin (LIPITOR) 20 mg tablet Take 1 Tablet by mouth daily. furosemide (LASIX) 40 mg tablet Take 40 mg by mouth daily in the morning. metoprolol succinate (TOPROL XL) 50 mg Extended Release 24 hour tablet Take 1 Tablet by mouth daily. cholecalciferol, Vitamin D3, 125 mcg (5,000 unit) Capsule Take by mouth. hydrALAZINE (APRESOLINE) 50 mg tablet Take 50 mg by mouth 3 times daily. No current facility-administered medications for this visit. Allergies Allergies Allergen Reactions Irbesartan-Hydrochlorothiazide Hives Lisinopril Swelling Other reaction(s): Swollen tongue Reaction: Swelling, Tongue Swelling, Other reaction(s): Swollen tongue Reaction: Swelling, Tongue Swelling, Other reaction(s): Swollen tongue Reaction: Swelling, Tongue Swelling, Sulfa (Sulfonamide Antibiotics) Swelling Immunizations: There is no immunization history on file for this patient. Family History No family history on file. Social History Social History Tobacco Use Smoking status: Not on file Smokeless tobacco: Not on file Substance Use Topics Alcohol use: Not on file Review of Systems Constitutional: Patient did not mention fever; no night sweats; no anorexia; no weight loss; no fatique NEENT: Patient did not mention headache; no change in vision; no change in hearing; no sore throat;no dysphagia Respiratory: Patient did not mention shortness of breath; no pleuritic chest pain; no cough; no hemoptysis Cardiac: Patient did not mention cardiac-like chest pain; no palpitations; no orthopnea; no PND; noDOE GI: Patient did not mention abdominal pain; no nausea; no vomiting; no diarrhea; no hematochezia; no melena : Patient did not mention dysuria; no frequency; no hesitancy; no hematuria PORTER HEAD: Musculosketetal: Patient did not mention bone pain; no arthralgia; no joint swelling; no myalgia; Skin: Patient did not mention pruritis; no rash; no petechiae; no ecchymoses Endocrine: Patient did not mention polydipsia; no polyuria; no unusual weight gain Neuro: Patient did not mention headache; no change in vision; no sensory changes; no muscle weakness; no confusion; no seizures Psych: Patient did not mention anxiety; no depression; Physical Exam Vitals: As per nursing note Constitutional: Well developed, well nourished, no acute distress, non-toxic appearance Teeth and gum. No signs of infection or swelling. Eyes: PERRL, conjunctiva normal HEENT: Atraumatic, external ears normal, nose normal, oropharynx moist, no pharyngeal exudates. no sinus tenderness Neck- normal range of motion, no tenderness, supple Respiratory: No respiratory distress, normal breath sounds, no rales, no wheezing Cardiovascular: Normal rate, normal rhythm, no murmurs, no gallops, no rubs GI: Soft, nondistended, normal bowel sounds, nontender, no splenomegaly, no hepatomegaly, no mass, no rebound, no guarding : No costovertebral angle tenderness Musculoskeletal: No edema, no tenderness, no deformities. Back- no tenderness Integument: Well hydrated, no rash, Digits and nails inspection normal Lymphatic: No lymphadenopathy noted Neurologic: Alert & oriented x 3, CN 2-12 normal, normal motor function, normal sensory function, no focal deficits noted Psychiatric: Speech and behavior appropriate ? labs No results found for this or any previous visit (from the past 24 hours). Labs from May 24, 2025 showed hemoglobin 7.4 WBC 7 platelets 518,000 creatinine 3.7 GFR 17% Pathology ? Imaging & Other Studies Performance Status? Assessment / Plan: ? Chronic anemia. Patient is a pleasant 65-year-old male with history of chronic kidney disease diagnosed almost 6 years ago along with history of hypertension, coronary artery disease statuspost coronary artery bypass grafting, aortic valve replacement and hyperlipidemia. Patient kidney disease is likely secondary to hypertension. Denies any chest pain or shortness of breath. No bleeding and bruising. He denies being a vegetarian. Denies any previous any stomach surgeries. He is not taking any iron supplements. Surprisingly he does not feel any tired and fatigued. He has never received blood transfusion. At this time I will order the baseline labs including CBC with differential, CMP, serum protein electrophoresis with immunofixation, iron studies, soluble transferrin receptor, methylmalonic acid level and vitamin B12 level. Based on the results we will start him on Procrit 20,000 units on a biweekly basis. I do not see need for bone marrow biopsy testing at this time. I have answered all the questions to patient satisfaction. Follow-up in 2 weeks. Chronic kidney stage IV disease. He will continue to follow with Dr. Gallegos. Hyperlipidemia. Patient is on Lipitor. Hypertension. Patient is on Toprol and amlodipine. Coronary artery disease status post coronary artery bypass grafting. Stable. Status post aortic valve replacement with mechanical valve. Stable. Thank you very much for allowing me to participate in Mahin Duran's evaluation and management. Please feel free to contact if I can be of any further assistance in your patient???s care requiring hematology or oncology evaluation. Sincerely, ? ? Paras Matthew M.D. cell TOBACCO COUNSELING He is not a tobacco/nicotine user. Paras Matthew MD ,06/24/2025 1:59 PM ? Total time spent 60 minutes, two third of the total time spent counseling patient [id number]. CC:?Coleman Gallegos MD documented in this encounter Plan of Treatment Upcoming Encounters Date Type Department Care Team (Late st Contact Info) Description 07/08/2025 4:30 PM CDT Telephone Check Up [facility] Oncology and Hematology - [place] [address] [facility] [address] [place] [address] Paras Matthew MD [address] [facility] [address] [place] [address] Scheduled Orders Name Type Priority Associated Diagnoses Orde r Schedule CBC WITH DIFFERENTIAL Lab Stat Chronic anemia Expected: 06/24/2025, Expires: 06/24/2026 COMPREHENSIVE METABOLIC PANEL Lab Stat Chronic anemia Expected: 06/24/2025, Expires: 06/24/2026 FERRITIN Lab Routine Chronic anemia Expected: 06/24/2025, Expires: 06/24/2026 IRON, TIBC, AND PERCENT SATURATION Lab Routine Chronic anemia Expected: 06/24/2025, Expires: 06/24/2026 METHYLMALONIC ACID Lab Routine Chronic anemia Expected: 06/24/2025, Expires: 06/24/2026 TRANSFERRIN RECEPTOR TFR SOLUBLE Lab Routine Chronic anemia Expected: 06/24/2025, Expires: 06/24/2026 VITAMIN B12 AND FOLATE Lab Routine Chronic anemia Expected: 06/24/2025, Expires: 06/24/2026 PROTEIN ELECTROPHORESIS W/REFLEX,SERUM Lab Routine Chronic anemia Expected: 06/24/2025, Expires: 06/24/2026 documented as of this encounter Visit Diagnoses Diagnosis Chronic anemia- Primary Anemia, unspecified documented in this encounter
--- OUTSIDE RECORDS SUMMARY | 2025-06-24 14:20 | XMS_ITS | Encounter Summary ---
Author Organization [facility] Healthcare Address [address] [place] [address] Care Team Providers Care Automobile Rental Clerk Name Role Phone Coleman Gallegos MD Unavailable [phone] David Ellis MD Unavailable Nixon Stone MD Unavailable [phone] Charlotte Noland MD Unavailable [phone] Catalino Smith DO Primary Care Provider [phone] Encounter Details Date Type Department Care Team (Late st Contact Info) Description 08/23/2024 Orders Only [facility] [place] Information Management [address] [place] [id number] Scanning, Provider Social History Tobacco Use Types Packs/Day Years Used Date Smoking Tobacco: Former Cigarettes 1 20 0 12/21/1984 - 12/21/2004 Smokeless Tobacco: Never Alcohol Use Standard Drinks/Week Comments Yes 12 (1 standard drink = 0.6 oz pu re alcohol) [facility] Utilities Answer Date Recorded In the past 12 months has [employer], gas, oil, or water [employer] threatened to shut off services in your [...] you attend [facility] or orthodox services? 1 to 4 times per year 06/29/2024 Do you belong to any clubs o r organizations such as catholic groups, unions, fraternal or athletic groups, or [...] any time in the past 12 m [facility], were you homeless or living in a correction (including now)? No 06/29/2024 Personal Safety Answer Date Recorded Have you ever been in or are you currently in a harmful physical or emotional relationship or is someone making you feel afraid or unsafe? 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 Gender Identity Not on file Sexual Orientation Not on file documented as of this encounter Plan of Treatment Not on file documented as of this encounter Procedures Procedure Name Priority Date/Time Associated Diagnosis Comments SCAN - LABS 08/23/2024 documented in this encounter Results * SCAN - LABS (08/23/2024) us Provider Scanning Final Result documented in this encounter Visit Diagnoses Not on filedocumented in this encounter Care Teams Automobile Rental Clerk Relationship Specialty Start Date End Date Catalino Smith DO [address] [place] [address] PCP - General Internal Medicine 06/27/24 Coleman Gallegos MD Referring Physician Nephrology 06/06/24 David Ellis MD [address] [place], [place] [id number] Consulting Physician Cardiology 06/06/24 Nixon Stone MD [address] [place] [address] Referring Physician Cardiology 06/06/24 Charlotte Noland MD [address] [place], [place] [id number] Consulting Physician Cardiothoracic Surgery 06/06/24 documented as of this encounter
[2025-06-24 14:25] LABS: Hematocrit 25.2 % (42.0-52.0); Hemoglobin 8.6 g/dL (14.0-18.0); Immature Granulocyte Percent A 0.4 % (0-0.5); Lymphocytes Absolute Auto 1.09 K/mm3 (0.9-3.2); Mean Corpuscular HGB Conc 34.1 g/dl (32-36); Mean Corpuscular Hemoglobin 29.8 pg (26-34); Mean Corpuscular Volume 87.2 fl (80-100); Nucleated Red Blood Cells Absolute Auto 0.000 K/mm3 (0.0-0.012); Nucleated Red Blood Cells Perc 0.0 % (0.0-0.2); Platelet Count Result 322 k/mm3 (150-375); Red Blood Count 2.89 M/mm3 (4.6-6.20); White Blood Count 7.5 K/mm3 (4.5-10.0)
[2025-06-24 16:55] LABS: Iron 101 ug/dL (49-181)
[2025-06-24 17:04] LABS: Alanine Aminotransferase 13 U/L (6-50); Albumin Level 4.4 g/dL (3.5-5.1); Alkaline Phosphatase 96 U/L (38-126); Anion Gap 15 mmol/L (4-12); Aspartate Amino Transferase 50 U/L (17-59); Bilirubin,Total 0.7 mg/dL (0.2-1.3); Blood Urea Nitrogen 59 mg/dL (9-20); Calcium 8.9 mg/dL (8.4-10.2); Carbon Dioxide 15 mmol/L (22-30); Chloride 100 mmol/L (98-107); Estimated Glomerular Filt Rate 16; Glucose 97 mg/dL (65-110); Percent Iron Saturation 32 % (20-50); Potassium 4.6 mmol/L (3.4-5.0); Sodium 130 mmol/L (137-145); Total Protein 8.5 g/dL (6.3-8.2)
[2025-06-24 17:36] LABS: Ferritin 48.20 ng/mL (11.1-264)
[2025-06-24 18:15] LABS: Vitamin B12 344.0 pg/mL (239-931)
[2025-06-25 15:09] LABS: Albumin 3.8 g/dL (2.9-4.4); Alpha-1-Globulin 0.3 g/dL (0.0-0.4); Alpha-2-Globulin 0.9 g/dL (0.4-1.0); Gamma Globulin 1.3 g/dL (0.4-1.8)
== END 2025-06-24 14:04 | disposition home or self-care (01) ==
PROVIDERS: PCP Internal Medicine; Visit Provider Internal Medicine Hematology & Oncology
DX: D64.9 Anemia, unspecified (principal)
CPT/HCPCS: 36415; 80053; 82607; 82728; 82746; 83540; 83550; 84155; 84165; 84238; 85025